=== PATIENT | male | born 1965 | race Caucasian/White ===

== ENCOUNTER 2017-11-08 17:30 | Emergency (ER) | payer BC ==
[2017-11-08] MEDS ORDERED: ACETAMINOPHEN 500 MG TABLET PO ONE (18:49)
--- NOTE | 2017-11-08 18:54 | Emergency Department Record ---
History of Present Illness - General Stated Complaint: CHILS,SINUS/CHEST CONGESTION,BODY ACHES Time Seen by Provider: 11/08/17 18:49 Source: Patient Mode of Arrival: Ambulatory Limitations: No limitations - History of Present Illness Initial Comments: 52 yo male presents to ED for evaluation of body aches, non-productive cough, and fatigue symptoms that began this morning. Patient reports that his has been ill with similar symptoms, reports that his grandson was recently diagnosed with influenza. Patient denies health problems at his baseline. MD Complaint: Cough Onset/Timin -: Days(s) Severity: Mild Severity scale (1-10): 4 Consistency: Constant Associated Symptoms: Myalgias - Related Data Previous Rx's Medication Instructions Recorded Doxycycline Hyclate [Doxycycline] 100 mg PO BID #18 cap 11/08/17 Allergies Allergy/AdvReac Type Severity Reaction Status Date / Time No Known Drug Intolerances Allergy Unknown HYPERSENSIT Verified 11/08/17 18:31 [facility] Travel Screening - Travel/Exposure Within Last 30 Days Have you traveled within the last 30 days?: No - Travel/Exposure Within Last Year Have you traveled outside the [place] in the last year?: No - Additonal Travel Details Have you been exposed to anyone with a communicable illness?: No - Travel Symptoms Symptom Screening: None Review of Systems Constitutional: Reports: Chills, Fever, Malaise, Weakness. Denies: Night sweats Eyes: Denies: Eye discharge, Eye pain ENT: Reports: Congestion. Denies: Ear pain, Epistaxis Respiratory: Reports: Cough. Denies: Dyspnea Cardiovascular: Denies: Chest pain, Dyspnea on exertion, Edema Endocrine: Reports: Fatigue. Denies: Heat or cold intolerance Gastrointestinal: Denies: Abdominal pain, Nausea, Vomiting Genitourinary: Denies: Incontinence, Retention Musculoskeletal: Denies: Arthralgia, Back pain, Gout, Joint swelling Skin: Denies: Bruising, Change in color Neurological: Denies: Abnormal gait, Confusion, Headache, Tingling Psychiatric: Denies: Anxiety Hematological/Lymphatic: Denies: Anemia, Blood Clots Past Medical History - SOCIAL HISTORY Smoking Status: Current every day smoker Alcohol Use: None Drug Use: None - RESPIRATORY Hx Respiratory Disorders: No - CARDIOVASCULAR Hx Cardio Disorders: No - NEURO Hx Neuro Disorders: No - GI Hx GI Disorders: No - Hx Genitourinary Disorders: No - ENDOCRINE Hx Diabetes: No Hx Thyroid Disease: No - MUSCULOSKELETAL Hx Musculoskeletal Disorders: No - PSYCH Hx Psych Problems: No - HEMATOLOGY/ONCOLOGY Hx Hematology/Oncology Disorders: No Family Medical History Any Significant Family History?: Yes Physical Exam - General General Appearance: Alert, Oriented x3, Cooperative, Moderate distress Limitations: No limitations - Head Head exam: Atraumatic, Normocephalic, Normal inspection Head exam detail: negative: Abrasion, Contusion, Narayan's sign, General tenderness, Hematoma, Laceration - Eye Eye exam: Normal appearance. negative: Conjunctival injection, Periorbital swelling, Periorbital tenderness, Scleral icterus - ENT Ear exam: negative: Auricular hematoma, Auricular trauma Nasal Exam: negative: Active bleeding, Discharge, Dried blood, Foreign body Mouth exam: negative: Drooling, Laceration, Muffled voice, Tongue elevation - Neck Neck exam: Normal inspection. negative: Tenderness, Thyromegaly - Respiratory Respiratory exam: Normal lung sounds bilaterally. negative: Respiratory distress, Rhonchi, Stridor, Wheezes - Cardiovascular Cardiovascular Exam: Normal rhythm, Normal heart sounds, Tachycardia - GI/Abdominal GI/Abdominal exam: Soft. negative: Pulsatile mass, Rebound, Rigid - Rectal Rectal exam: Deferred - exam: Deferred - Extremities Extremities exam: Normal inspection. negative: Calf tenderness, Pedal edema, Tenderness - Back Back exam: Denies: CVA tenderness (R), CVA tenderness (L) - Neurological Neurological exam: Alert, Normal gait, Oriented X3 - Psychiatric Psychiatric exam: Normal affect, Normal mood - Skin Skin exam: Normal color. negative: Abrasion Type of lesion: negative: abrasion Course Vital Signs 11/08/17 18:27 Temperature 99.6 F Pulse Rate 120 H Respiratory 20 Rate Blood Pressure 140/83 Pulse Ox 97 - Reevaluation(s) Reevaluation #1: 11/08/17 19:33 CXR: No acute process Reevaluation #2: 11/08/17 20:38 Labs reviewed and are grossly unremarkable for an acute process. Reevaluation #3: 11/08/17 20:46 Patient reassessed and reports that he is feeling much improved, pulse down to 91. Will prescribe Doxycycline to be filled if symptoms fail to improve in 24-48 hours. Patient appears stable for discharge at this time. Medical Decision Making - Lab Data Result diagrams: 02/05/18 20:10 11/08/17 20:10 Disposition Disposition: Discharge Clinical Impression: Viral syndrome Disposition: Home, Self-Care Condition: (2) Stable Instructions: Viral Syndrome (ED) Additional Instructions: Return to ED if your symptoms worsen or if you have any concerns. Doxycycline as directed. Follow-up with your family doctor in 3-5 days as directed. Prescriptions: Doxycycline Hyclate [Doxycycline] 100 mg PO BID #18 cap Forms: Patient Portal Access Time of Disposition: 20:49 Quality - Quality Measures Quality Measures: N/A - Blood Pressure Screening Does Patient Have Any of the Following: No Blood Pressure Classification: Pre-Hypertensive BP Reading Systolic Measurement: 140 Diastolic Measurement: 83 Screening for High Blood Pressure: < Pre-Hypertensive BP, F/U Documented > [ G8950] Pre-Hypertensive Follow-up Interventions: Referral to alternative/primary care provider.
[2017-11-08] MEDS ORDERED: 0.9 % SODIUM CHLORIDE 1000ML 1,000 ML IV SCH (19:00)
[2017-11-08 19:09] LABS: INFLUENZA A NEGATIVE (NEGATIVE); INFLUENZA B NEGATIVE (NEGATIVE)
[2017-11-08 20:15] LABS: BASO % 0.2 % (0-6); EOS % 0.5 % (0-6); HEMATOCRIT 42.7 % (42.0-52.0); HEMOGLOBIN 15.1 gm/dl (14.0-18.0); LYMPH % 6.1 % (16-45); MEAN CELL VOLUME 86.8 fl (81-97); MEAN CORPUSCULAR HEMOGLOBIN 30.7 pg (27-33); MEAN CORPUSCULAR HGB CONC 35.4 g/dl (32-36); MEAN PLATELET VOLUME 9.6 fl (7.4-10.4); MONO % 6.5 % (0-9); PLATELET COUNT 203 K/uL (130-400); RED BLOOD COUNT 4.92 M/uL (4.40-5.70); RED CELL DISTRIBUTION WIDTH 14.4 % (11.5-14.5); WHITE BLOOD COUNT W/O DIFF 8.2 K/uL (4.2-12.2)
[2017-11-08 20:28] LABS: BLOOD UREA NITROGEN 11 mg/dL (6-20); CREATININE 0.8 mg/dL (0.7-1.2); EST GLOMERULAR FILTRATION RATE > 60 mL/min; TOTAL PROTEIN 6.6 g/dL (6.6-8.7)
[2017-11-08 20:30] LABS: GLUCOSE,RANDOM 88 mg/dL (74-109)
[2017-11-08 20:33] LABS: ALB/GLOB RATIO 1.6 (1.1-1.8); ALBUMIN 4.1 g/dL (4.0-5.0); ALKALINE PHOSPHATASE 91 U/L (40-129); ALT/SGPT 19 U/L (<41); AST/SGOT 18 U/L (10.0-50.0)
--- NOTE | 2017-11-10 09:40 | RADIOLOGY REPORT ---
DATE: 11/08/2017 at 7:11 p.m. EXAM: TWO-VIEW, CHEST. HISTORY: Cough, body aches, sinus congestion, and chest congestion. TECHNIQUE: PA and lateral views. COMPARISON: None. FINDINGS: Heart size is normal. Mild elevation of the left hemidiaphragm. Vague density overlying the anterior aspect of the right sixth rib on the frontal view may just be a faintly seen nipple shadow with no obvious intrapulmonary nodule identified on the lateral view at this level of the chest. Follow-up PA bilateral oblique views with nipple markers applied could be obtained to confirm. No pleural effusion or pneumothorax evident. Mild spurring in the spine. IMPRESSION: 1. MILD ELEVATION OF THE LEFT HEMIDIAPHRAGM. 2. SPURRING IN THE SPINE. 3. FAINT NODULAR DENSITY ABOUT 1.5 CM IN SIZE OVERLYING THE ANTERIOR ASPECT OF THE RIGHT SIXTH RIB ON A FRONTAL VIEW IS NONSPECIFIC; ALTHOUGH IT MAY JUST BE A PROMINENT NIPPLE SHADOW. ADDITIONAL FILMS DESCRIBED ABOVE COULD BE OBTAINED IN AN EFFORT TO CONFIRM. JOB NUMBER: [id number] [facility]
== END 2017-11-08 20:59 | disposition home or self-care (01) ==
LOC: ER 17:30
DX: B34.9 Viral infection, unspecified (principal); R05 Cough; R53.83 Other fatigue; F17.210 Nicotine dependence, cigarettes, uncomplicated
CPT/HCPCS: 71046; 80053; 85027; 87400; 99284; J7030

== ENCOUNTER 2019-03-23 13:20 | Emergency (ER) | payer BC ==
--- NOTE | 2019-03-23 13:31 | Emergency Department Record ---
History of Present Illness - General Chief complaint: Dental Stated complaint: TOOTH PAIN Time Seen by Provider: 03/23/19 13:25 Source: Patient Mode of Arrival: Ambulatory Limitations: No limitations - History of Present Illness Initial comments: The patient is here due to R lower molar pain for 3 days. He denies any pain with swallowing or swelling. The patient does have an appointment with his Dentist next week. MD complaint: Tooth pain Onset/Timin -: Days(s) Location: Tooth # Severity: Moderate Severity scale (1-10): 7 Quality: Aching Consistency: Constant Improves with: None Worsens with: None - Related Data Previous Rx's Medication Instructions Recorded Amoxicillin 500 mg PO TID #21 capsule 03/23/19 Naproxen [Naprosyn] 500 mg PO BID #14 tablet. 03/23/19 Allergies Allergy/AdvReac Type Severity Reaction Status Date / Time No Known Drug Intolerances Allergy Unknown HYPERSENSIT Verified 11/08/17 18:31 [facility] Travel Screening - Travel/Exposure Within Last 30 Days Have you traveled within the last 30 days?: No Review of Systems Constitutional: Denies: Chills, Fever Eyes: Denies: Eye discharge ENT: Denies: Congestion Respiratory: Denies: Cough Past Medical History - SOCIAL HISTORY Smoking Status: Current every day smoker Alcohol Use: None Drug Use: None - RESPIRATORY Hx Respiratory Disorders: No - CARDIOVASCULAR Hx Cardio Disorders: No - NEURO Hx Neuro Disorders: No - GI Hx GI Disorders: No - Hx Genitourinary Disorders: No - ENDOCRINE Hx Endocrine Disorders: No Hx Diabetes: No Hx Thyroid Disease: No - MUSCULOSKELETAL Hx Musculoskeletal Disorders: No - PSYCH Hx Psych Problems: No - HEMATOLOGY/ONCOLOGY Hx Hematology/Oncology Disorders: No Family Medical History Any Significant Family History?: No Physical Exam - General General Appearance: Alert, Oriented x3, Cooperative, No acute distress - Head Head exam: Atraumatic, Normocephalic, Normal inspection - Eye Eye exam: Normal appearance, PERRL, EOMI - ENT ENT exam: TM's normal bilaterally Teeth exam: Dental caries, Dental tenderness # (31. There is no gum line swelling or obvious abscess.), Other (The patient is able to open his mouth wide with no pain or difficulty.). negative: Normal inspection Throat exam: Normal inspection. negative: Tonsillar erythema, Tonsillar exudate - Neck Neck exam: Normal inspection, Full ROM. negative: Tenderness - Respiratory Respiratory exam: Normal lung sounds bilaterally. negative: Respiratory distress - Cardiovascular Cardiovascular Exam: Regular rate, Normal rhythm, Normal heart sounds Course Vital Signs 03/23/19 13:22 Temperature 98.3 F Pulse Rate 79 Respiratory 20 Rate Blood Pressure 143/90 Pulse Ox 97 - Reevaluation(s) Reevaluation #1: I did discuss the need to keep the appointment with his Dentist. 03/23/19 13:33 Disposition Disposition: Discharge Clinical Impression: Pain, dental Disposition: Home, Self-Care Condition: (2) Stable Instructions: Toothache (ED) Additional Instructions: Please take the Amox and Naprosyn as directed and see the Dentist next week as planned. Prescriptions: Amoxicillin 500 mg PO TID #21 capsule Naproxen [Naprosyn] 500 mg PO BID #14 tablet.dr Forms: Patient Portal Access Time of Disposition: 13:30 Quality - Quality Measures Quality Measures: N/A - Blood Pressure Screening View Details: Yes Does Patient Have Any of the Following: No Blood Pressure Classification: Hypertensive Reading Systolic Measurement: 143 Diastolic Measurement: 90 Screening for High Blood Pressure: < First Hypertensive BP, F/U Documented > [G8950] First Hypertensive Follow-up Interventions: Referral to alternative/primary care provider.
== END 2019-03-23 13:40 | disposition home or self-care (01) ==
LOC: ER 13:20
DX: K02.9 Dental caries, unspecified (principal); F17.210 Nicotine dependence, cigarettes, uncomplicated
CPT/HCPCS: 99282

== ENCOUNTER 2019-05-20 21:30 | Emergency (ER) | payer BC ==
[2019-05-20] MEDS ORDERED: KETOROLAC 30 MG/ML VIAL IVP ONE (22:10)
--- NOTE | 2019-05-20 22:19 | Emergency Department Record ---
History of Present Illness - General Chief complaint: Pain Stated complaint: RIB PAIN/JUJU Time Seen by Provider: 05/20/19 21:49 Source: Patient Mode of Arrival: Ambulatory Limitations: No limitations - History of Present Illness Initial comments: pt has had pain in his back that feels like 'a rib is out' since this am. it hurts constantly but gets worse with movement and inspiration. he denies any known injury MD Complaint: Other Onset/Timin -: Hour(s) Location: Left History of Same: Yes (similiar but it usually goes away) Severity scale (1-10): 8 Quality: Stabbing Consistency: Constant Improves with: Nothing Worsens with: Other Associated Symptoms: Denies other symptoms - Related Data Previous Rx's Medication Instructions Recorded Cyclobenzaprine HCl [Flexeril] 10 mg PO TID #10 tablet 05/21/19 Ibuprofen [Motrin 600Mg] 600 mg PO Q6H #20 tablet 05/21/19 Allergies Allergy/AdvReac Type Severity Reaction Status Date / Time No Known Drug Intolerances Allergy Unknown HYPERSENSIT Verified 05/20/19 22:08 [facility] Travel Screening - Travel/Exposure Within Last 30 Days Have you traveled within the last 30 days?: No - Travel/Exposure Within Last Year Have you traveled outside the [place] in the last year?: No - Additonal Travel Details Have you been exposed to anyone with a communicable illness?: No - Travel Symptoms Symptom Screening: None Review of Systems Reviewed: No additional complaints except as noted below Constitutional: Reports: As per HPI. Denies: Chills, Fever, Malaise, Night sweats, Weakness, Weight change Eyes: Reports: As per HPI. Denies: Eye discharge, Eye pain, Photophobia, Vision change ENT: Reports: As per HPI. Denies: Congestion, Dental pain, Ear pain, Epistaxis, Hearing loss, Throat pain Respiratory: Reports: As per HPI. Denies: Cough, Dyspnea, Hemoptysis, Stridor, Wheezes Cardiovascular: Reports: As per HPI. Denies: Arrhythmia, Chest pain, Dyspnea on exertion, Edema, Murmurs, Orthopnea, Palpitations, Paroxysmal nocturnal dyspnea, Rheumatic Fever, Syncope Endocrine: Reports: As per HPI. Denies: Fatigue, Heat or cold intolerance, Polydipsia, Polyuria Gastrointestinal: Reports: As per HPI. Denies: Abdominal pain, Constipation, Diarrhea, Hematemesis, Hematochezia, Melena, Nausea, Vomiting Genitourinary: Reports: As per HPI. Denies: Dysuria, Frequency, Hematuria, Incontinence, Retention, Testicular pain, Testicular mass, Urgency Musculoskeletal: Reports: As per HPI, Back pain. Denies: Arthralgia, Gout, Joint swelling, Myalgia, Neck pain Skin: Reports: As per HPI. Denies: Bruising, Change in color, Change in hair/nails, Lesions, Pruritus, Rash Neurological: Reports: As per HPI. Denies: Abnormal gait, Confusion, Headache, Numbness, Paresthesias, Seizure, Tingling, Tremors, Vertigo, Weakness Psychiatric: Reports: As per HPI. Denies: Anxiety, Auditory hallucinations, Depression, Homicidal thoughts, Suicidal thoughts, Visual hallucinations Hematological/Lymphatic: Reports: As per HPI. Denies: Anemia, Blood Clots, Easy bleeding, Easy bruising, Swollen glands Past Medical History - SOCIAL HISTORY Smoking Status: Current every day smoker Alcohol Use: Rare Drug Use: None - RESPIRATORY Hx Respiratory Disorders: No - CARDIOVASCULAR Hx Cardio Disorders: No - NEURO Hx Neuro Disorders: No - GI Hx GI Disorders: No - Hx Genitourinary Disorders: No - ENDOCRINE Hx Endocrine Disorders: No Hx Diabetes: No Hx Thyroid Disease: No - MUSCULOSKELETAL Hx Musculoskeletal Disorders: No - PSYCH Hx Psych Problems: No - HEMATOLOGY/ONCOLOGY Hx Hematology/Oncology Disorders: No Family Medical History Any Significant Family History?: No Physical Exam - General General Appearance: Alert, Oriented x3, Cooperative, Mild distress - Head Head exam: Normal inspection - Eye Eye exam: Normal appearance, PERRL, EOMI Pupils: Normal accommodation - ENT ENT exam: Normal exam, Mucous membranes moist, Normal external ear exam, Normal orophraynx Ear exam: Normal external inspection. negative: External canal tenderness Nasal Exam: Normal inspection. negative: Discharge, Sinus tenderness Mouth exam: Normal external inspection, Tongue normal Teeth exam: Normal inspection. negative: Dental caries Throat exam: Normal inspection. negative: Tonsillar erythema, Tonsillar exudate - Neck Neck exam: Normal inspection, Full ROM. negative: Tenderness - Respiratory Respiratory exam: Normal lung sounds bilaterally. negative: Respiratory distress - Cardiovascular Cardiovascular Exam: Regular rate, Normal rhythm, Normal heart sounds - GI/Abdominal GI/Abdominal exam: Soft, Normal bowel sounds. negative: Tenderness - Rectal Rectal exam: Deferred - exam: Deferred - Extremities Extremities exam: Normal inspection, Full ROM, Normal capillary refill. negative: Tenderness - Back Back exam: Reports: Full ROM, Muscle spasm, Tenderness. Denies: Normal inspection, Rash noted - Neurological Neurological exam: Alert, CN II-XII intact, Normal gait, Oriented X3 - Psychiatric Psychiatric exam: Normal affect, Normal mood - Skin Skin exam: Dry, Intact, Normal color, Warm Course - Reevaluation(s) Reevaluation #1: 05/21/19 00:30 ct neg for pe but pulmonary nodules present Medical Decision Making - Lab Data Result diagrams: 05/20/19 22:44 05/20/19 22:44 Disposition Disposition: Discharge Clinical Impression: Pulmonary nodules Thoracic myofascial strain Qualifiers: Encounter type: initial encounter Qualified Code(s): S29.019A - Strain of muscle and tendon of unspecified wall of thorax, initial encounter Disposition: Home, Self-Care Condition: (1) Good Instructions: Thoracic Back Strain (ED), Pulmonary Nodules (ED) Additional Instructions: follow up with family doctor. return sooner if worse. have repeat ct in 3 months. Prescriptions: Cyclobenzaprine HCl [Flexeril] 10 mg PO TID #10 tablet Ibuprofen [Motrin 600Mg] 600 mg PO Q6H #20 tablet Forms: Patient Portal Access Quality - Quality Measures Quality Measures: N/A - Blood Pressure Screening Does Patient Have Any of the Following: No Blood Pressure Classification: Hypertensive Reading Systolic Measurement: 148 Diastolic Measurement: 94 Screening for High Blood Pressure: < First Hypertensive BP, F/U Documented > [G8950] First Hypertensive Follow-up Interventions: Follow-up with rescreen GT 1 day and LT 4 weeks.
[2019-05-20 22:46] LABS: ABSOLUTE NEUTROPHIL COUNT 8.28; BASO % 0.4 % (0-6); GRAN % 69.7 % (47-80); HEMATOCRIT 47.6 % (42.0-52.0); HEMOGLOBIN 16.4 gm/dl (14.0-18.0); LYMPH % 17.3 % (16-45); MEAN CELL VOLUME 87.5 fl (81-97); MEAN CORPUSCULAR HEMOGLOBIN 30.1 pg (27-33); MEAN CORPUSCULAR HGB CONC 34.5 g/dl (32-36); MEAN PLATELET VOLUME 9.9 fl (7.4-10.4); MONO % 10.6 % (0-9); PLATELET COUNT 264 K/uL (130-400); RED BLOOD COUNT 5.44 M/uL (4.40-5.70); RED CELL DISTRIBUTION WIDTH 14.8 % (11.5-14.5); WHITE BLOOD COUNT W/O DIFF 11.9 K/uL (4.2-12.2)
[2019-05-20 22:59] LABS: BLOOD UREA NITROGEN 12 mg/dL (6-20); CREATININE 1.1 mg/dL (0.7-1.2); EST GLOMERULAR FILTRATION RATE > 60 mL/min
[2019-05-20 23:02] LABS: GLUCOSE,RANDOM 101 mg/dL (74-109)
[2019-05-21] MEDS ORDERED: HYDROMORPHONE HCL 2 MG/ML VIAL IVP ONE (00:21)
[2019-05-21] MEDS ORDERED: ONDANSETRON HCL IV 4 MG/2 ML VIAL IVP ONE (00:22)
--- NOTE | 2019-05-22 08:35 | CT ANGIOGRAM REPORT ---
EXAM: CT ANGIOGRAM OF THE CHEST HISTORY: PATIENT HAS LEFT SIDED BACK AND RIB PAIN. SHORTNESS OF BREATH. TECHNIQUE: Serial axial CT angiogram of the chest was performed at 1.25 mm intervals from the thoracic inlet to the dome of the diaphragm following intravenous administration of 90 ml of Omnipaque 350. Comparison: Chest x-ray dated 11/08/17. FINDINGS: The thoracic inlet is unremarkable. The lung windows demonstrate a 9.5 mm nodule within the bilateral lower lobe. Adjacent to this nodule, there is a partially pleural based 6.8 mm nodule. The larger of these two nodules demonstrates possible central calcifications suggesting that this may represent a granuloma, however, I would recommend a follow-up CT scan of the chest within six months to document stability of finding. There is additionally a 4.4 mm pleural based nodule identified within the right lateral lower lobe. There is a nonspecific pleural based 3.25 mm nodule within the left lateral lower lobe. The visualized heart size and contour is within normal limits. The thoracic aorta demonstrates normal contour, caliber, and flow. There is no CT evidence of a filling defect within the primary and secondary pulmonary arterial tree to suggest a pulmonary embolus. Calcified right hilar lymph nodes are identified. There is no CT evidence of a hilar, axillary, or mediastinal lymphadenopathy. The chest wall is unremarkable. Axial images through the upper abdomen demonstrate the visualized liver, spleen, and bilateral adrenal glands to be unremarkable. Bone windows demonstrate no CT evidence of an acute process involving the visualized osseous structures. IMPRESSION: 1. NO CT EVIDENCE OF A PULMONARY EMBOLUS OR ACUTE INTRATHORACIC PROCESS. 2. NODULES ARE IDENTIFIED BILATERALLY DISCUSSED ABOVE. THE LARGEST OF THESE NODULES IS LOCATED WITHIN THE RIGHT LATERAL LOWER LOBE WITH FINDINGS SUGGESTIVE OF CENTRAL CALCIFICATIONS. THESE FINDINGS SUGGEST GRANULOMATOUS CHANGES, HOWEVER, I WOULD RECOMMEND A FOLLOW-UP CT SCAN OF THE CHEST IN SIX MONTHS TO DOCUMENT STABILITY OF FINDINGS. JOB NUMBER: [id number] MTDD
== END 2019-05-21 00:50 | disposition home or self-care (01) ==
LOC: ER 21:30
DX: S29.019A Strain of muscle and tendon of unspecified wall of thorax, initial encounter (principal); R79.89 Other specified abnormal findings of blood chemistry; R06.02 Shortness of breath; R91.8 Other nonspecific abnormal finding of lung field; X58.XXXA Exposure to other specified factors, initial encounter; F17.210 Nicotine dependence, cigarettes, uncomplicated
CPT/HCPCS: 99284 ×2; 96374; 96375; 85025; 80048; 85379; 71275; Q9967; J1885; J2405; J1170